=== PATIENT | female | born 2000 | race Caucasian/White ===

== ENCOUNTER 2018-05-03 21:19 | Inpatient (IN) | payer MEDICAID ==
[2018-05-03 22:24] LABS: ADD UMIC YES; UR ASCORBIC ACID NEGATIVE (NEGATIVE); UR BILIRUBIN (Dip) NEGATIVE (NEGATIVE); UR BLOOD (Dip) NEGATIVE (NEGATIVE); UR CLARITY CLEAR (CLEAR); UR COLOR YELLOW (YELLOW); UR GLUCOSE (Dip) NEGATIVE (NEGATIVE); UR KETONES (Dip) NEGATIVE (NEGATIVE); UR LEUKOCYTE ESTERASE (Dip) 3+ Leu/ul (NEGATIVE); UR NITRITE (Dip) NEGATIVE (NEGATIVE); UR RBC 4 /HPF (0-5); UR SPECIFIC GRAVITY (Dip) 1.005 (1.003-1.030); UR SQUAMOUS EPITHELIAL CELL FEW /HPF (FEW); UR TOTAL PROTEIN (Dip) NEGATIVE (NEGATIVE); UR UROBILINOGEN (Dip) NEGATIVE (NEGATIVE); UR WBC 3 /HPF (0-5)
[2018-05-03] MEDS: LACTATED RINGER'S 1,000 ML IV (23:28)
[2018-05-03] MEDS: TERBUTALINE 1 MG/ML INJ SC (23:36)
[2018-05-04] MEDS ORDERED: AL HYDROX/MG HYDROX/SIMETH 30 ML CUP PO (01:00)
[2018-05-04] MEDS ORDERED: AMPICILLIN 2 GM/NS (PMX) 100 ML IV (01:00)
[2018-05-04] MEDS ORDERED: ONDANSETRON 4 MG INJ IV (01:00)
[2018-05-04 01:18] LABS: ADD MAN DIFF? NO
[2018-05-04 01:22] LABS: BASOPHILS % 0.3 % (0.0-2.0); EOSINOPHILS # 0.2 10^3/ul (0.0-0.5); EOSINOPHILS % 1.7 % (0.0-7.0); HEMOGLOBIN 11.8 g/dl (12.0-16.0); LYMPHOCYTES # 1.6 10^3/ul (0.8-2.9); LYMPHOCYTES % 16.5 % (18.0-55.0); MEAN CORPUSCULAR HEMOGLOBIN 29.1 pg (29.0-33.0); MEAN CORPUSCULAR HGB CONC 32.8 g/dl (32.0-37.0); MEAN CORPUSCULAR VOLUME 88.7 fl (72.0-104.0); MEAN PLATELET VOLUME 12.8 fl (7.4-10.4); MONOCYTE # 0.8 10^3/ul (0.3-0.9); MONOCYTES % 8.3 % (0.0-13.0); NEUTROPHIL # 7.2 10^3/ul (1.6-7.5); NEUTROPHILS % 72.7 % (30.0-74.0); PLATELET COUNT 201 10^3/UL (140-415); RED BLOOD COUNT 4.06 10^6/ul (4.20-5.40); RED CELL DISTRIBUTION WIDTH 13.5 % (11.5-14.5)
[2018-05-04 01:42] LABS: INR 0.94; PROTIME 12.7 Sec (11.9-14.9)
[2018-05-04 01:43] LABS: PARTIAL THROMBOPLASTIN TIME 26.1 Sec (23.0-35.0)
[2018-05-04] MEDS: LACTATED RINGER'S 1,000 ML IV ×3 (02:00→16:30)
[2018-05-04] MEDS: BETAMET NA PHOS/AC(6 MG/ML) 2 ML INJ SYG IM (02:30)
[2018-05-04] MEDS: CEFAZOLIN 2 GM/50 ML (PMX) 50 ML IVPB ×3 (02:45→18:06)
[2018-05-04] MEDS: MAGNESIUM SULFATE 4 GM/100 ML 100 ML IV (03:16)
[2018-05-04] MEDS: MAGNESIUM SULFATE 20 GM/500 ML 500 ML IV ×2 (03:43→15:25)
[2018-05-04] MEDS ORDERED: CEFAZOLIN 2 GM/50 ML (PMX) 50 ML IVPB (06:00)
[2018-05-04 06:49] LABS: MAGNESIUM 5.2 mg/dl (1.7-2.5)
[2018-05-04] MEDS: PRENATAL VITAMIN PO (09:30)
[2018-05-04 18:24] LABS: MAGNESIUM 4.7 mg/dl (1.7-2.5)
[2018-05-04 22:16] LABS: RAPID PLASMA REAGIN NONREACTIVE (NR)
[2018-05-04] MEDS: ACETAMINOPHEN 325 MG TAB PO (23:31)
[2018-05-05] MEDS: LACTATED RINGER'S 1,000 ML IV ×4 (00:05→23:57)
[2018-05-05 01:34] LABS: MAGNESIUM 5.8 mg/dl (1.7-2.5)
[2018-05-05] MEDS: MAGNESIUM SULFATE 20 GM/500 ML 500 ML IV (01:37)
[2018-05-05] MEDS: BETAMET NA PHOS/AC(6 MG/ML) 2 ML INJ SYG IM (02:30)
[2018-05-05] MEDS: CEFAZOLIN 2 GM/50 ML (PMX) 50 ML IVPB ×3 (02:49→18:41)
[2018-05-05 07:53] LABS: MAGNESIUM 6.2 mg/dl (1.7-2.5)
[2018-05-05] MEDS: PRENATAL VITAMIN PO (09:16)
[2018-05-05 12:51] LABS: MAGNESIUM 5.6 mg/dl (1.7-2.5)
[2018-05-06] MEDS: CEFAZOLIN 2 GM/50 ML (PMX) 50 ML IVPB ×3 (02:34→18:24)
[2018-05-06] MEDS: LACTATED RINGER'S 1,000 ML IV ×2 (08:01→17:09)
[2018-05-06] MEDS: PRENATAL VITAMIN PO (10:32)
[2018-05-06] MEDS ORDERED: MISOPROSTOL 200 MCG TAB (12:52)
[2018-05-07] MEDS: CEFAZOLIN 2 GM/50 ML (PMX) 50 ML IVPB ×2 (02:23→10:50)
[2018-05-07] MEDS: LACTATED RINGER'S 1,000 ML IV (05:00)
== END 2018-05-07 14:35 | disposition home or self-care (01) | DRG 832 ==
LOC: OBT 21:19 → L-D 21:22
DX: O23.42 Unspecified infection of urinary tract in pregnancy, second trimester (principal); O47.02 False labor before 37 completed weeks of gestation, second trimester; O26.872 Cervical shortening, second trimester; Z3A.28 28 weeks gestation of pregnancy
CPT/HCPCS: 36415; 76815; 76817; 76818; 81001; 83735; 85025; 85610; 85730; 86592; 86850; 86900; 86901; 87086; 96360; 96361; 96372

== ENCOUNTER 2018-07-11 18:41 | Inpatient (IN) | payer MEDICAID ==
[2018-07-11] MEDS: LACTATED RINGER'S 1,000 ML IV (19:19)
[2018-07-11] MEDS: AMPICILLIN 2 GM/NS (PMX) 100 ML IV (19:20)
[2018-07-11] MEDS ORDERED: BUTORPHANOL 1 MG INJ IV (19:30)
[2018-07-11] MEDS ORDERED: OXYTOCIN 30 UNITS/LR 500 ML IV ×2 (19:30→21:30)
[2018-07-11] MEDS ORDERED: LIDOCAINE 1% (MPF) 30 ML INJ INJ (19:30)
[2018-07-11] MEDS ORDERED: BUTORPHANOL 2 MG INJ IV (19:30)
[2018-07-11 19:43] LABS: ADD MAN DIFF? NO
[2018-07-11 19:45] LABS: BASOPHILS % 0.3 % (0.0-2.0); EOSINOPHILS % 0.1 % (0.0-7.0); HEMATOCRIT 38.5 % (37.0-47.0); HEMOGLOBIN 12.5 g/dl (12.0-16.0); LYMPHOCYTES # 1.1 10^3/ul (0.8-2.9); LYMPHOCYTES % 6.9 % (18.0-55.0); MEAN CORPUSCULAR HEMOGLOBIN 26.8 pg (29.0-33.0); MEAN CORPUSCULAR HGB CONC 32.5 g/dl (32.0-37.0); MEAN CORPUSCULAR VOLUME 82.6 fl (72.0-104.0); MEAN PLATELET VOLUME 12.1 fl (7.4-10.4); MONOCYTE # 0.6 10^3/ul (0.3-0.9); MONOCYTES % 3.7 % (0.0-13.0); NEUTROPHIL # 13.8 10^3/ul (1.6-7.5); NEUTROPHILS % 88.4 % (30.0-74.0); PLATELET COUNT 231 10^3/UL (140-415); RED BLOOD COUNT 4.66 10^6/ul (4.20-5.40); RED CELL DISTRIBUTION WIDTH 14.5 % (11.5-14.5)
[2018-07-11 19:45] LABS: WHITE BLOOD COUNT 15.6 10^3/ul (4.8-10.8)
[2018-07-11 20:00] LABS: INR 0.95; PROTIME 12.8 Sec (11.9-14.9)
[2018-07-11 20:01] LABS: PARTIAL THROMBOPLASTIN TIME 27.5 Sec (23.0-35.0)
[2018-07-11 20:34] LABS: HEPATITIS B SURFACE ANTIGEN NEGATIVE (NEGATIVE)
[2018-07-11] MEDS: OXYTOCIN 30 UNITS/LR 500 ML IV ×3 (21:03→23:19)
[2018-07-11] MEDS: METHYLERGONOVINE 0.2 MG INJ IM (21:29)
[2018-07-11] MEDS ORDERED: DIPHENHYDRAMINE 50 MG INJ IV (21:30)
[2018-07-11] MEDS ORDERED: NA PHOSPHATE/BIPHOS 133 ML ENEMA PR (21:30)
[2018-07-11] MEDS ORDERED: CARBOPROST 250 MCG INJ IM (21:30)
[2018-07-11] MEDS ORDERED: MISOPROSTOL 200 MCG TAB PR (21:30)
[2018-07-11] MEDS ORDERED: ONDANSETRON 4 MG INJ IV (21:30)
[2018-07-11] MEDS ORDERED: MAGNESIUM HYDROXIDE 30ML CUP PO (21:30)
[2018-07-11] MEDS ORDERED: DIPHENHYDRAMINE 25 MG CAP PO (21:30)
[2018-07-11] MEDS ORDERED: ONDANSETRON 4 MG TAB PO (21:30)
[2018-07-11] MEDS ORDERED: DIBUCAINE 1% 30 GM OINT TOP (21:30)
[2018-07-11] MEDS ORDERED: SENNA/DOCUSATE NA (8.6MG/50MG) TAB PO (21:30)
[2018-07-11] MEDS: CARBOPROST 250 MCG INJ IM (21:55)
[2018-07-11] MEDS: MISOPROSTOL 200 MCG TAB PR (21:55)
[2018-07-11] MEDS: HYDROCODONE/APAP (5/325) TAB PO (22:04)
[2018-07-11] MEDS: morphine 10 MG INJ IV (22:27)
[2018-07-11] MEDS ORDERED: AMPICILLIN 1 GM/NS (PMX) 50 ML IV (23:30)
[2018-07-12] MEDS: LANOLIN HPA 1 PKT TOP (05:28)
[2018-07-12] MEDS: IBUPROFEN 600 MG TAB PO ×5 (05:28→23:42)
[2018-07-12] MEDS: BENZOCAINE 20% 56 ML SPRAY TOP (05:29)
[2018-07-12] MEDS: WITCH HAZEL/GLYCERIN PAD PR (05:29)
[2018-07-12] MEDS: LACTATED RINGER'S 1,000 ML IV* ×3 (06:42→21:05)
[2018-07-12 08:59] LABS: ADD MAN DIFF? NO
[2018-07-12 09:02] LABS: BASOPHILS % 0.2 % (0.0-2.0); EOSINOPHILS % 0.2 % (0.0-7.0); HEMATOCRIT 26.2 % (37.0-47.0); HEMOGLOBIN 8.6 g/dl (12.0-16.0); LYMPHOCYTES # 1.9 10^3/ul (0.8-2.9); LYMPHOCYTES % 10.8 % (18.0-55.0); MEAN CORPUSCULAR HEMOGLOBIN 27.4 pg (29.0-33.0); MEAN CORPUSCULAR HGB CONC 32.8 g/dl (32.0-37.0); MEAN CORPUSCULAR VOLUME 83.4 fl (72.0-104.0); MEAN PLATELET VOLUME 12.8 fl (7.4-10.4); MONOCYTE # 1.5 10^3/ul (0.3-0.9); MONOCYTES % 8.1 % (0.0-13.0); NEUTROPHIL # 14.4 10^3/ul (1.6-7.5); PLATELET COUNT 180 10^3/UL (140-415); RED BLOOD COUNT 3.14 10^6/ul (4.20-5.40); RED CELL DISTRIBUTION WIDTH 14.6 % (11.5-14.5)
[2018-07-12 09:02] LABS: WHITE BLOOD COUNT 17.9 10^3/ul (4.8-10.8)
[2018-07-12] MEDS: LACTATED RINGER'S 1,000 ML IV ×2 (10:27→19:04)
[2018-07-12] MEDS: SENNA/DOCUSATE NA (8.6MG/50MG) TAB PO ×2 (10:27→21:12)
[2018-07-12 16:44] LABS: RAPID PLASMA REAGIN NONREACTIVE (NR)
[2018-07-13] MEDS: LACTATED RINGER'S 1,000 ML IV ×2 (03:04→11:04)
[2018-07-13] MEDS: HYDROCODONE/APAP (5/325) TAB PO (03:50)
[2018-07-13] MEDS: LACTATED RINGER'S 1,000 ML IV* ×2 (05:05→13:05)
[2018-07-13] MEDS: IBUPROFEN 600 MG TAB PO ×3 (05:49→18:06)
[2018-07-13 08:49] LABS: ADD MAN DIFF? NO
[2018-07-13] MEDS: VARICELLA VACCINE LIVE/PF 1,350 UNIT/0.5 ML ML SC* (09:00)
[2018-07-13] MEDS: MEASLES,MUMPS,RUBELLA VACCINE INJ SC* (09:00)
[2018-07-13 09:02] LABS: BASOPHIL # 0.1 10^3/ul (0.0-0.1); BASOPHILS % 0.5 % (0.0-2.0); EOSINOPHILS # 0.3 10^3/ul (0.0-0.5); EOSINOPHILS % 2.6 % (0.0-7.0); HEMATOCRIT 22.9 % (37.0-47.0); HEMOGLOBIN 7.3 g/dl (12.0-16.0); LYMPHOCYTES # 1.8 10^3/ul (0.8-2.9); LYMPHOCYTES % 17.6 % (18.0-55.0); MEAN CORPUSCULAR HEMOGLOBIN 27.3 pg (29.0-33.0); MEAN CORPUSCULAR HGB CONC 31.9 g/dl (32.0-37.0); MEAN CORPUSCULAR VOLUME 85.8 fl (72.0-104.0); MEAN PLATELET VOLUME 11.9 fl (7.4-10.4); MONOCYTE # 0.8 10^3/ul (0.3-0.9); MONOCYTES % 8.3 % (0.0-13.0); NEUTROPHIL # 7.2 10^3/ul (1.6-7.5); NEUTROPHILS % 70.5 % (30.0-74.0); PLATELET COUNT 170 10^3/UL (140-415); RED BLOOD COUNT 2.67 10^6/ul (4.20-5.40); RED CELL DISTRIBUTION WIDTH 15.3 % (11.5-14.5)
[2018-07-13 09:02] LABS: WHITE BLOOD COUNT 10.2 10^3/ul (4.8-10.8)
[2018-07-13] MEDS: SENNA/DOCUSATE NA (8.6MG/50MG) TAB PO (09:05)
[2018-07-13] MEDS: DIPHTH/TET/ACEL PERTUSS (ADULT) 0.5 ML VIAL IM* (14:57)
== END 2018-07-13 20:45 | disposition home or self-care (01) | DRG 807 ==
LOC: OBT 18:41 → PP1 07-12 00:19 → L-D 18:43 → OBT 18:55 → L-D 18:55
PROVIDERS: Specialist
PROC: 10E0XZZ Delivery of Products of Conception, External Approach (ICD-10-PCS; principal; 2018-07-11)
PROC: 0KQM0ZZ Repair Perineum Muscle, Open Approach (ICD-10-PCS; 2018-07-11)
DX: O77.0 Labor and delivery complicated by meconium in amniotic fluid (principal); Z37.0 Single live birth; O70.1 Second degree perineal laceration during delivery; Z3A.40 40 weeks gestation of pregnancy; Z23 Encounter for immunization
CPT/HCPCS: 85025; 85610; 85730; 86592; 86850; 86900; 86901; 87340; 90715; 90716; 99464